=== PATIENT | female | born 1985 | race Caucasian/White ===

== ENCOUNTER 2017-08-20 20:59 | Emergency (ER) | payer MEDICAID ==
[~2017-08-20] VITALS: Ht 160 cm; Wt 82.7 kg
[2017-08-20 21:10] VITALS: BP 123/88
[2017-08-20 22:21] VITALS: BP 123/88
== END 2017-08-20 22:22 | disposition home or self-care (01) ==
LOC: MED 20:59
DX: R51 Headache (principal); M54.2 Cervicalgia; R03.0 Elevated blood-pressure reading, without diagnosis of hypertension; J45.909 Unspecified asthma, uncomplicated; Z88.0 Allergy status to penicillin
CPT/HCPCS: 81002; 81025; 99282

== ENCOUNTER 2020-05-11 17:13 | Emergency (ER) | payer MEDICAID ==
[~2020-05-11] VITALS: Ht 165.1 cm; Wt 74.8 kg
[2020-05-11 17:35] VITALS: BP 152/95
--- NOTE | 2020-05-11 17:39 | NUR ---
triaged and waiting in tent.
[2020-05-11 19:15] VITALS: BP 152/95
--- NOTE | 2020-05-11 19:30 | NUR ---
PATIENT CALLED FOR BED , NO RESPONSE PATIENT LEFT WITHOUT BEING SEEN BY DR. HERZOG. NO FURTHER CARE PROVIDED FOR PATIENT.
--- NOTE | 2020-05-11 19:35 | NUR ---
CALLED FOR SECOND TIME , NO RESPONSE
--- NOTE | 2020-05-11 19:40 | NUR ---
CALLED FOR THE THIRD TIME NO RESPONSE
== END 2020-05-11 19:30 | disposition left against medical advice (07) ==
LOC: MED 17:13
DX: R09.81 Nasal congestion (principal); F41.9 Anxiety disorder, unspecified; Z53.21 Procedure and treatment not carried out due to patient leaving prior to being seen by health care provider; M79.18 Myalgia, other site; Z88.0 Allergy status to penicillin